=== PATIENT | female | born 1965 | race Two or more races ===

== ENCOUNTER 2017-06-03 10:40 | Outpatient (CLI) | payer OTHER | END 2017-06-03 10:56 | disposition home or self-care (01) | LOC: MAMO-SONO 10:40 | DX: N60.19 Diffuse cystic mastopathy of unspecified breast (principal); Z12.31 Encounter for screening mammogram for malignant neoplasm of breast ==

== ENCOUNTER 2021-08-15 13:25 | Outpatient (CLI) | payer OTHER | END 2021-08-15 13:28 | disposition home or self-care (01) | LOC: NUCLEAR 13:25 | PROVIDERS: ATTEND Obstetrics & Gynecology Maternal & Fetal Medicine | DX: M81.0 Age-related osteoporosis without current pathological fracture (principal) ==

== ENCOUNTER 2021-10-15 10:08 | Outpatient (CLI) | payer OTHER | END 2021-10-15 10:14 | disposition home or self-care (01) | LOC: MAMO-SONO 10:08 | PROVIDERS: ATTEND Obstetrics & Gynecology Maternal & Fetal Medicine | DX: Q79.8 Other congenital malformations of musculoskeletal system (principal); N63.11 Unspecified lump in the right breast, upper outer quadrant; N60.11 Diffuse cystic mastopathy of right breast; N64.4 Mastodynia ==